=== PATIENT | male | born 1950 | race Caucasian/White ===

== ENCOUNTER → 2023-01-27 | Outpatient (CLI) | payer MEDICARE, OTHER ==
[~2023-01-27] MED LIST: IOPAMIDOL 370 MG/ML 100 ML INFUS..BTL INJ ONE; SODIUM CHLORIDE 0.9% 250ML 250 ML ONE
[2023-01-27 10:31] LABS: CREATININE, SERUM 0.73 mg/dL (0.72-1.25)
== END ==
LOC: CT 09:38
PROVIDERS: ATTEND Urology
DX: R31.0 Gross hematuria (principal); R31.21 Asymptomatic microscopic hematuria
CPT/HCPCS: 36415; 74178; 82565; 84520; J7050; Q9967